=== PATIENT | female | born 1935 | race African-American/Black ===

== ENCOUNTER 2022-10-26 14:44 | Inpatient (IN) | payer OTHER ==
[~2022-10-26] VITALS: Ht 152.4 cm; Wt 93.6 kg
[2022-10-26] MEDS ORDERED: VERAPAMIL (15:00)
[2022-10-26] MEDS ORDERED: Lisinopril (15:00)
--- NOTE | 2022-10-26 15:09 | NUR ---
PT IS IN ROOM #2B . DR PAUL EVALUATED THE PT.
[2022-10-26 16:09] LABS: MEAN CORPUSCULAR HEMOGLOBIN 31.4 uug (24.7-32.8); MEAN CORPUSCULAR VOLUME 95.7 fL (75.5-95.3); PLATELET COUNT (AUTO) 406 K/uL (179-408)
[2022-10-26 16:24] LABS: CARBON DIOXIDE 27 mmol/L (21-32); CHLORIDE 103 mmol/L (98-107); CREATININE 1.5 mg/dL (0.6-1.3); GLUCOSE 158 mg/dL (74-106); UREA NITROGEN, BLOOD 25 mg/dL (7-18)
[2022-10-26] MEDS ORDERED: ALBUTEROL SULFATE 2.5 MG/3 ML NEBU ONE (16:37)
[2022-10-26 16:38] LABS: ALANINE AMINOTRANSFERASE 14 U/L (14-59); ALKALINE PHOSPHATASE 109 U/L (50-136); ASPARTATE AMINOTRANSFERASE 10 U/L (15-37); BILIRUBIN,DIRECT 0.1 mg/dL (0.0-0.2); BILIRUBIN,TOTAL 0.3 mg/dL (0.2-1.0); TOTAL PROTEIN, SERUM 8.4 g/dL (6.4-8.2)
[2022-10-26] MEDS ORDERED: ALBUTEROL SULFATE 2.5 MG/3 ML NEBU NEB ONE (16:45)
[2022-10-26] MEDS ORDERED: NIFE-34 MT (16:47)
[2022-10-26] MEDS ORDERED: LISI10TA29 MT (16:47)
[2022-10-26] MEDS ORDERED: HYDR-3972 MT (16:47)
[2022-10-26] MEDS ORDERED: CARV12.52 MT (16:47)
[2022-10-26] MEDS ORDERED: methylPREDNISolone SOD SUCC 40 MG/ML VIAL IV ONE (17:00)
[2022-10-26] MEDS ORDERED: HYDROCORTISONE SOD SUCCINATE 100 MG/2 ML VIAL IV ONE (17:03)
[2022-10-26] MEDS ORDERED: MAGNESIUM HYDROXIDE 30 ML LIQUID UDC PO PRN (19:00)
[2022-10-26] MEDS ORDERED: ALBUTEROL SULFATE 2.5 MG/3 ML NEBU NEB PRN (19:00)
[2022-10-26] MEDS ORDERED: HYDROCODONE/APAP 5-325MG TABLET PO PRN (19:00)
[2022-10-26] MEDS ORDERED: ACETAMINOPHEN 325 MG TABLET PO PRN (19:00)
[2022-10-26] MEDS ORDERED: IV NS 1000 ML 1,000 ML IV ONE (19:00)
[2022-10-26] MEDS ORDERED: REMEDY ESSENTIAL ZINC PASTE 113 GM TP PRN (19:00)
[2022-10-26] MEDS ORDERED: ONDANSETRON 4 MG/2 ML VIAL IV PRN (19:00)
[2022-10-26] MEDS ORDERED: IPRATROPIUM BROMIDE 0.5 MG/2.5 ML NEBU NEB PRN (19:00)
--- NOTE | 2022-10-26 19:25 | NUR ---
Received report from SUZETTE Jackson.
[2022-10-26] MEDS ORDERED: HEPARIN SODIUM,PORCINE 5,000 UNITS/ML VIAL SQ ONE (21:00)
--- NOTE | 2022-10-26 21:35 | NUR ---
Report given to SUZETTE Irvin.
--- NOTE | 2022-10-26 22:50 | NUR ---
Pt. admitted to [facility] rm 318, under care of KEIRY Nelson. Belongs List completed SUZETTE Irvin aware of pt's arrival to unit.
[2022-10-26 23:00] VITALS: BP 152/74
[2022-10-27] MEDS: CARVEDILOL 12.5 MG TABLET PO SCH ×3 (01:00→21:14)
[2022-10-27] MEDS: HEPARIN SODIUM,PORCINE 5,000 UNITS/ML VIAL SQ SCH ×3 (01:31→21:13)
[2022-10-27 04:00] VITALS: BP 143/68
[2022-10-27 07:45] LABS: HEMATOCRIT 33.5 % (31.2-41.9); MEAN CORPUSCULAR HEMOGLOBIN 31.8 uug (24.7-32.8); MEAN CORPUSCULAR VOLUME 96.2 fL (75.5-95.3); PLATELET COUNT (AUTO) 362 K/uL (179-408)
[2022-10-27 07:49] LABS: CREATININE 1.1 mg/dL (0.6-1.3); MAGNESIUM 2.3 mg/dL (1.8-2.4); PHOSPHOROUS 2.9 mg/dL (2.5-4.9); POTASSIUM 4.2 mmol/L (3.5-5.1)
[2022-10-27 07:59] LABS: THYROID STIMULATING HORMONE 0.754 mIU/mL (0.358-3.740)
[2022-10-27] MEDS: NIFEdipine XL 60 MG TABSR PO SCH (08:48)
[2022-10-27] MEDS ORDERED: methylPREDNISolone SOD SUCC 40 MG/ML VIAL IV SCH (09:00)
[2022-10-27] MEDS ORDERED: PANTOPRAZOLE SODIUM 40 MG VIAL IV SCH (09:00)
[2022-10-27 12:09] VITALS: BP 148/81
[2022-10-27 16:00] VITALS: BP 128/71
[2022-10-27 20:00] VITALS: BP 128/74
[2022-10-28 04:00] VITALS: BP 139/67
--- NOTE | 2022-10-28 06:05 | NUR ---
patient in bed awake in stable condition and able to make needs known. no sob or resp distress noted. patient refused blood draw and does not want any lab to be done on her. risks and benefits explained. patient still refusing. made aware.
[2022-10-28] MEDS ORDERED: PANTOPRAZOLE SODIUM 40 MG TABLET.DR PO SCH (07:00)
[2022-10-28] MEDS: NIFEdipine XL 60 MG TABSR PO SCH (08:41)
[2022-10-28 08:42] VITALS: BP 149/61
[2022-10-28] MEDS: CARVEDILOL 12.5 MG TABLET PO SCH (08:42)
[2022-10-28] MEDS: HEPARIN SODIUM,PORCINE 5,000 UNITS/ML VIAL SQ SCH (08:44)
--- NOTE | 2022-10-28 13:16 | NUR ---
Rcvd pt in bed AAOX4. No SOB or any respiratory distress. Denies any pain. Ate breakfast 80-90%. Keep pt. clean and dry. Took medication as ordered and tolerated it well.
[2022-10-28 13:34] LABS: *BILIRUBIN,URIN NEGATIVE (NEGATIVE); *BLOOD, URINE 2+ (NEGATIVE); *CLARITY,URINE SLIGHTLY CLOUDY (CLEAR); *COLOR,URINE YELLOW (YELLOW); *KETONES,URINE NEGATIVE (NEGATIVE); *UROBILINOGEN,URINE 0.2 E.U./dl (NORMAL); LEUKOCYTE ESTERASE ,URINE 3+ (NEGATIVE); NITRITE, URINE NEGATIVE (NEGATIVE); PH,URINE 6.5 (5.0-8.0); UGLUCOSE NEGATIVE (NEGATIVE)
[2022-10-28 13:53] LABS: *CREATININE,URINE 20.9 mg/dL (30-125); *URINE TOTAL PROTEIN RANDOM 14.2 mg/dL (<150/24HR)
[2022-10-28 18:37] LABS: BACTERIA,URINE MANY /HPF (NONE SEEN); RBC,URINE 20-50 /HPF (0-3); SQUAMOUS EPITHELIAL CELL,UR FEW /HPF (NONE SEEN); WBC,URINE TNTC /HPF (0-3)
== END 2022-10-28 16:15 | DRG 202 ==
LOC: ER 14:44 → MEDSURG3 21:52
PROVIDERS: ADMIT Nurse Practitioner Acute Care; ATTEND Nurse Practitioner Acute Care
DX: J45.901 Unspecified asthma with (acute) exacerbation (principal); N17.0 Acute kidney failure with tubular necrosis; K50.90 Crohn's disease, unspecified, without complications; E86.9 Volume depletion, unspecified; I10 Essential (primary) hypertension; Z93.3 Colostomy status; Z85.42 Personal history of malignant neoplasm of other parts of uterus; Z59.00 Homelessness unspecified; M89.8X9 Other specified disorders of bone, unspecified site; E83.9 Disorder of mineral metabolism, unspecified; Z20.822 Contact with and (suspected) exposure to COVID-19; R53.1 Weakness
CPT/HCPCS: 36415; 71045; 83735; 84100; 84156; 84300; 84443; 84484; 85025; 93005; A4663; C9113; G0378; J1644; J1720; J2920; J7040